=== PATIENT | female | born 1975 | race Caucasian/White ===

== ENCOUNTER 2021-01-04 18:35 | Outpatient (REF) | payer OTHER, SELFPAY ==
[2021-01-07 15:19] LABS: Chlamydia Result Negative (Negative); GC Result Negative (Negative)
== END 2021-01-04 18:36 | disposition home or self-care (01) ==
LOC: LBN 18:35
PROVIDERS: Visit Provider Nurse Practitioner Family
DX: Z11.3 Encounter for screening for infections with a predominantly sexual mode of transmission (principal); Z20.2 Contact with and (suspected) exposure to infections with a predominantly sexual mode of transmission
CPT/HCPCS: 87491; 87591